=== PATIENT | female | born 1940 | race Caucasian/White ===

== ENCOUNTER 2018-09-17 16:54 | Outpatient (REF) | payer MEDICARE, SELFPAY ==
--- NOTE | 2018-09-17 15:40 | SKI_PTH ---
PATIENT: Jayne Devries LOC: [facility] U#:[id number] AGE/SX: 77/F ROOM: RE09/17/[address]: Hang Chaudhry : 1940 BED: DIS: 09/17/2018 SPEC #: [id number] RECD: 09/20/18 12:27 STATUS: IRVIN REGerardo #: [id number] NORAH: 09/17/18 15:[address]: Hagn Chaudhry DEPT: Surgical Specimen RECD BY: Ayala Molina Tissues: 1 - SKIN BIOPSY(SHAVE/PUNCH) Procedures: SKIN LEVEL 4 SPECIAL STAIN 1 Comments: [id number]
== END 2018-09-17 17:14 ==
LOC: NCHCN 16:54
PROVIDERS: PCP Internal Medicine; Visit Provider Internal Medicine
DX: R23.4 Changes in skin texture (principal); L85.8 Other specified epidermal thickening
CPT/HCPCS: 88305; 88312

== ENCOUNTER 2021-10-24 18:16 | Outpatient (REF) | payer MEDICARE, SELFPAY ==
[2021-10-26 11:57] LABS: COVID-19 RT-PCR UVMMC Result Negative (Negative)
== END 2021-10-24 18:17 | disposition home or self-care (01) ==
LOC: NCHCN 18:16
PROVIDERS: PCP Internal Medicine; Visit Provider Nurse Practitioner Family
DX: J06.9 Acute upper respiratory infection, unspecified (principal); Z20.822 Contact with and (suspected) exposure to COVID-19
CPT/HCPCS: U0003